=== PATIENT | male | born 2000 | race Two or more races ===

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

== ENCOUNTER 2023-05-25 15:09 | Emergency (ER) | payer SELFPAY ==
--- NOTE | ~2023-05-25 | XR_ITS ---
EXAMINATION: XR CHEST CLINICAL INFORMATION: Cough COMPARISON: None available. TECHNIQUE: 2 views of the chest were obtained. FINDINGS: Lungs are mildly hypoinflated. Patchy airspace opacities are present in the left upper lobe including lingula. No pleural effusion or pneumothorax. Cardiomediastinal silhouette has normal size and contour. Skeletal structures and upper abdomen are unremarkable. XR/XR chest 2V IMPRESSION: Pneumonia of the left upper lobe/lingula. No pleural effusion.
[2023-05-25 15:18] VITALS: BP 146/81; PULSE 98; RESP 16; TEMP 36.6; O2SAT 95; BMI 47.2
--- NOTE | 2023-05-25 15:18 | ED_ITS ---
HPI - General Adult General Chief complaint: Upper Respiratory Symptoms Stated complaint: sob,congested cough,chest pain Time Seen by Provider: 05/25/23 17:57 Source: patient Mode of arrival: ambulatory Limitations: no limitations History of Present Illness HPI narrative: Patient is a 23 year old assigned male at with no reported medical history presenting to the emergency department today with a sore throat and a cough. Patient states that over the last 3 days he has had a cough and a sore throat. Patient denies any dizziness, lightheadedness, abdominal pain, nausea, vomiting, fever, chills, blurry vision, double vision, loss of vision, chest pain, difficulty breathing, shortness of breath, back pain, night sweats, pain with urination, increased urinary frequency, increased urinary urgency, blood in his urine or stool, syncope or a near syncopal episode, recent trauma or falls, bowel incontinence, bladder incontinence, bowel retention, bladder retention, or any other complaints at this time. Onset (ago): day(s) (3) Severity: mild Relieving factors: none Exacerbating factors: none Associated symptoms: cough Treatments prior to arrival: none Related Data Previous Rx's Medication Instructions Recorded doxycycline hyclate 100 mg tablet 100 mg PO BID 7 days #14 tabs 05/25/23 Allergies Allergy/AdvReac Type Severity Reaction Status Date / Time No Known Allergies Allergy Verified 08/05/21 10:16 Review of Systems Constitutional: Constitutional: Reports no additional constitutional complaints, Denies chills, Denies fever(s) and Denies night sweats Eyes: Eyes: Reports no additional eye complaints, Denies blurry vision, Denies change in vision, Denies diplopia, Denies eye discharge, Denies loss of vision and Denies eye pain ENT: Denies dizziness and Reports sore throat Cardiovascular: Cardiovascular: Reports no additional cardiovascular complaints, Denies chest pain, Denies lightheadedness, Denies Loss of Consciousness and Denies dyspnea Respiratory: Respiratory: Reports no additional respiratory complaints, Reports cough and Denies dyspnea Gastrointestinal: Gastrointestinal: Reports no additional gastrointestinal complaints, Denies abdominal pain, Denies melena, Denies hematochezia, Denies c hange in bowel habits and Denies change in stool character Genitourinary: Genitourinary: Reports no additional male genitourinary complaints, Denies hematuria, Denies oliguria, Denies difficulty urinating, Denies dysuria, Denies urinary frequency, Denies urinary hesitancy, Denies urinary incontinence and Denies urinary urgency Musculoskeletal: Musculoskeletal: Reports no additional musculoskeletal complaints, Denies numbness and Denies tingling Neurologic: Denies dizziness, Denies loss of vision, Denies numbness and Denies tingling Psychiatric: Psychiatric: Reports no additional psychiatric complaints Endocrine: Endocrine: Reports no additional endocrine complaints Hematologic/Lymphatic: Hematologic/Lymphatic: Reports no additional hematologic/lymphatic complaints Allergic/Immunologic: Allergic/Immunologic: Reports no additional aller gic/immunologic complaints PMFSH Past Medical History Attestation statement: The following information was validated with the patient. Source: old records reviewed and nursing notes reviewed Social History Social History Advance Directives: No Advance Directives Information Provided: No Physical Exam ED Vital Signs: Vital Signs - 24 hr 05/25/23 15:18 Temperature 97.9 F Pulse Rate 98 Respiratory Rate 16 Blood Pressure 146/81 H Pulse Oximetry 95 Oxygen Delivery Method Room Air BMI result Body Mass Index 47.2 Const General: cooperative, no acute distress, alert and awake Nutritional Appearance: well nourished Orientation/consciousness: patient oriented x3 Limitations: no limitations HENMT Head: Yes normal to inspection and Yes atraumatic Ears: hearing grossly normal bilaterally and external ears normal General nose exam: Normal external nose present, no nasal discharge noted and no epistaxis Face and sinus: Yes normal facial exam, No abrasion and No laceration Mouth: Normal oral and palatal mucosa present, no drooling and no muffled voice Eyes General: appearance normal, both eyes and all related structures Periorbital: periorbital findings normal Eyelids: Yes eyelids normal Conjunctivae: conjunctivae normal Pupils: Equal, round and reactive pupils present EOM: EOMs intact bilaterally Neck Neck: Yes normal visual inspection, Yes full ROM and Yes no lymphadenopathy Chest Chest palpation & inspection: normal inspection of the chest Resp Effort & Inspection: normal respiratory effort and able to speak in complete sentences GI Inspection: Yes normal to inspection Neuro General: patient oriented x3 and moves all extremities Cranial nerves: Yes Equal, round and reactive pupils present Cognition (Neuro): normal cognition Motor exam (neuro): 5/5 motor strength present throughout Sensory Exam: Normal double simultaneous stimulation for sensation Coordination: [id number] test normal Extrem General: Yes normal to inspection, Yes full ROM and Yes capillary refill normal Psych Appearance: grossly normal Mental Status: mental status grossly normal Affect: normal affect Attitude: cooperative Thought process: Normal thought process present Thought content: Normal thought content present Insight: Good insight present (Psych) Course Course Course Narrative: RME performed by Myrna Thompson PA-C. Patient is a 23 year old assigned male at presenting to the emergency department with a sore throat and a cough. Detailed physical exam and review of systems are deferred to the manager hospice. Swabs ordered. Patient placed back in the waiting room pending room availability and results. Medical Decision Making Medical Decision Making MDM Narrative: Patient is a 23 year old assigned male at with no reported medical history presenting to the emergency department today with a sore throat and a cough. Patient's physical exam was unremarkable. Patient's chest x-ray showed evidence of pneumonia. Patient's COVID-19, influenza, RSV, and strep tests were all negative. I explained my physical exam findings as well as all test results to the patient. I answered all questions asked by the patient. I stressed the importance of the patient taking his medication as prescribed. I stressed the importance of the patient following up with his primary care provider. I stressed the importance of the patient returning to the emergency department immediately if his symptoms were to worsen or if he were to develop any dizziness, shortness of breath, difficulty breathing, chest pain, blurry vision, loss of vision, nausea, vomiting, abdominal pain, fever, chills, back pain, or any other complaints. Patient verbalized agreement and understanding with this treatment plan and discharge. Differential Diagnosis Differential Diagnoses: The differential diagnosis associated with the presentation includes Pneumonia COVID-19 Influenza RSV Strep pharyngitis URI Admission/Observation Consideration of admission/observation: Escalation of care including admission/observation considered Patient would have been admitted to the hospital had his work up had any findings where hospital admission was appropriate and his clinical presentation warranted hospital admission. Lab Data [facility] Lab Attestation statement: I reviewed the patient's lab results. My interpretation of these results are in the [facility] Rationale portion of this note. Labs: Lab Results 05/25/23 05/25/23 Range/Units 16:36 17:13 Influenza Type A (PCR) NEGATIVE (Negative) Influenza Type B (PCR) NEGATIVE (Negative) RSV RNA Qual (PCR) NEGATIVE (Negative) SARS-CoV-2 RNA (RT-PCR) NEGATIVE (Negative) S. pyogenes GrpA ELIZABETH Negative (Negative) Independent Interpretation I performed an independent interpretation of an: Plain X-Ray Interpretation: My interpretation is in agreement with the radiologist's impression of this imaging study. EXAMINATION: XR CHEST CLINICAL INFORMATION: Cough COMPARISON: None available. TECHNIQUE: 2 views of the chest were obtained. FINDINGS: Lungs are mildly hypoinflated. Patchy airspace opacities are present in the left upper lobe including lingula. No pleural effusion or pneumothorax. Cardiomediastinal silhouette has normal size and contour. Skeletal structures and upper abdomen are unremarkable. XR/XR chest 2V IMPRESSION: Pneumonia of the left upper lobe/lingula. No pleural effusion. Dictated By: Nico Headley MD Signed By: Electronically signed by Nico Headley MD 05/25/23 0831 Radiology Impression Discussion of test interpretation with radiology: I have reviewed the radiolog ist's reading. Prescription Management I considered prescription management with: Antibiotic (patient prescribed an antibiotic for PNA) Discharge Plan Discharge Clinical Impression: Pneumonia Patient Disposition: Home, Self-Care Instructions: Community Acquired Pneumonia (DC) Additional Instructions: Follow up with your primary care provider. Return to the emergency department immediately if your symptoms worsen or if you develop any dizziness, shortness o f breath, difficulty breathing, chest pain, blurry vision, loss of vision, nausea, vomiting, abdominal pain, fever, chills, back pain, or any other complaints. Prescriptions: New doxycycline hyclate 100 mg tablet 100 mg PO BID 7 Days Qty: 14 0RF Referrals: [facility] [place] Family Medicine [Provider Group] (Call to establish and follow up with a primary care provider. If you already have a primary care provider, please follow up with them.) [facility] [Provider Group] (Call to establish and follow up with a primary care provider. If you already have a primary care provider, please follow up with them.) [facility] [place] Primary Care,Jessy [Provider Group] (Call to establish and follow up with a primary care provider. If you already have a primary care provider, please follow up with them.) Discharge Date/Time: 05/25/23 18:17 Print Language: Indonesian
[2023-05-25 17:25] LABS: Influenza A PCR NEGATIVE (Negative); Influenza B PCR NEGATIVE (Negative); Resp Syncy Virus RNA Qual PCR NEGATIVE (Negative); SARS COV2 PCR INHOUSE NEGATIVE (Negative)
[2023-05-25 17:38] LABS: IDNOW Serial# 58CA691E; Strep A Nucleic Acid Negative (Negative)
--- NOTE | 2023-05-25 18:16 | PC.NURSE ---
PT WAS REASSESSED BY TRIAGE PROVIDER AND DISCHARGED FROM TRIAGE. PT AGREEABLE TO DISCHARGE PLAN
== END 2023-05-25 18:17 | disposition home or self-care (01) ==
PROVIDERS: Physician Assistant Medical; Emergency Provider Emergency Medicine Emergency Medical Services
DX: J18.9 Pneumonia, unspecified organism (principal); Z11.52 Encounter for screening for COVID-19; Z20.828 Contact with and (suspected) exposure to other viral communicable diseases
CPT/HCPCS: 0241U; 71046; 87651; 99281; 99284

== ENCOUNTER 2023-09-07 11:44 | Emergency (ER) | payer MEDICAID, SELFPAY ==
[2023-09-07 12:23] VITALS: BP 152/97; PULSE 86; RESP 18; TEMP 37; O2SAT 99; BMI 46.4
== END 2023-09-07 17:15 | disposition left against medical advice (07) ==
PROVIDERS: Emergency Provider Emergency Medicine
DX: R51.9 Headache, unspecified (principal)
CPT/HCPCS: 99281

== ENCOUNTER 2023-09-08 11:41 | Emergency (ER) | payer MEDICAID, SELFPAY ==
[2023-09-08 12:50] VITALS: BP 126/69; PULSE 82; RESP 16; TEMP 37.1; O2SAT 98; BMI 46.2
--- NOTE | 2023-09-08 12:53 | ED.GENADULT ---
HPI - General Adult General Chief complaint: Skin/Abscess/Foreign Body Stated complaint: cyst on back of head spreading ? lwct yesterday Time Seen by Provider: 09/08/23 12:58 Source: patient, RN notes reviewed and old records reviewed Mode of arrival: ambulatory Limitations: no limitations History of Present Illness ED Provider: Ivan DICK narrative: 23-year-old male with no significant past medical history presents for evaluation of ?a cyst. ? Patient reports for last couple of days he is started with a small pimple to the back of his neck The area is painful, seems to be growing in size There has not been any drainage He reports a similar episode in the past which ?drained and went away on its own. ? He denies any trauma to the area, denies any fevers or chills Related Data Previous Rx's ?Medication ?Instructions ?Recorded doxycycline hyclate 100 mg tablet 100 mg PO BID 7 days #14 tabs 05/25/23 cephalexin 500 mg tablet 500 mg PO QID #28 tabs 09/08/23 Allergies Allergy/AdvReac Type Severity Reaction Status Date / Time No Known Allergies Allergy Verified 09/08/23 12:51 Review of Systems Constitutional: Constitutional: Denies body ache(s), Denies chills and Denies fever(s) Eyes: Eyes: Denies blurry vision Integumentary/Breasts: Skin/Breast: Reports erythema, Reports skin pain, Reports skin swelling and Denies wounds Physical Exam ED Vital Signs: Vital Signs - 24 hr 09/08/23 12:50 Temperature 98.8 F Pulse Rate 82 Respiratory Rate 16 Blood Pressure 126/69 Pulse Oximetry 98 Oxygen Delivery Method Room Air BMI result Body Mass Index 46.2 Const General: healthy appearing, comfortable, no acute distress, alert and awake Nutritional Appearance: well nourished Orientation/consciousness: patient oriented x3 HENMT Head: Yes normocephalic and Yes atraumatic Eyes Eyelids: Yes eyelids normal Conjunctivae: conjunctivae normal Sclerae: sclerae normal Corneas: corneas normal Pupils: Equal, round and reactive pupils present EOM: EOMs intact bilaterally Neck Neck: Yes full ROM Resp Effort & Inspection: normal respiratory effort, able to speak in complete sentences and not labored Skin Other: Patient has trace erythema to the posterior neck. There is a 2 x 2 cm area of induration that is slightly mobile. No open wounds this area is tender to palpation General skin exam: elasticity normal Neuro General: patient oriented x3 Cranial nerves: Yes Equal, round and reactive pupils present and Yes Bilaterally intact EOM present Cognition (Neuro): normal cognition Medical Decision Making Medical Decision Making MDM Narrative: Patient appears to have a sebaceous cyst versus lipoma that is likely infected given the small erythema and acute pain. Plan to treat with cephalexin. Discussed possible incision and drainage and patient would like to try antibiotics and warm compresses 1st. There is no evidence of sepsis. He is full range of motion to neck, there is no meningeal signs to suggest meningitis or encephalitis Differential Diagnosis Differential Diagnoses: The differential diagnosis associated with the presentation includes Sebaceous cyst Lipoma Cellulitis Abscess Discharge Plan Discharge Clinical Impression: Sebaceous cyst Patient Disposition: Home, Self-Care Instructions: Cyst (ED) Additional Instructions: You likely have a sebaceous cyst to the back of your neck. Take cephalexin 4 times daily for the next 7 days I also recommend using warm compresses every 3-4 hours Return for new or worsening symptoms Prescriptions: New cephalexin 500 mg tablet 500 mg PO QID Qty: 28 0RF No Action doxycycline hyclate 100 mg tablet 100 mg PO BID 7 Days Qty: 14 0RF Print Language: [place]
== END 2023-09-08 13:25 | disposition home or self-care (01) ==
LOC: HO.ED 13:05
PROVIDERS: Emergency Provider Emergency Medicine
DX: L72.3 Sebaceous cyst (principal); L72.9 Follicular cyst of the skin and subcutaneous tissue, unspecified
CPT/HCPCS: 99281